=== PATIENT | female | born 1965 | race Caucasian/White ===

== ENCOUNTER 2016-10-22 16:09 | Inpatient (IN) | payer OTHER, MEDICAID, MEDICARE ==
[~2016-10-22] VITALS: Ht 182.9 cm; Wt 119.0 kg
[2016-10-30] MEDS ORDERED: FLUO40CA PO (15:14)
[2016-10-30] MEDS ORDERED: MOBI15TA PO (15:14)
[2016-10-30] MEDS ORDERED: METO25TA3 PO (15:14)
[2016-10-30] MEDS ORDERED: ATOR40TA16 PO (15:14)
[2016-10-30] MEDS ORDERED: FERR140T PO (15:14)
[2016-10-30] MEDS ORDERED: BUPR1TAB29 PO (15:14)
[2016-10-30] MEDS ORDERED: BUTA1CAP5 PO (15:14)
[2016-10-30] MEDS ORDERED: DULE100A INH (15:14)
[2016-10-30] MEDS ORDERED: CYCL1TAB29 PO (15:14)
[2016-10-30] MEDS ORDERED: GABA100C4 PO (15:14)
[2016-10-30] MEDS ORDERED: BENA25TA3 PO (15:14)
[2016-10-30] MEDS ORDERED: TRAZ100T4 PO (15:14)
[2016-10-30] MEDS ORDERED: GLIP10TA6 PO (15:14)
[2016-10-30] MEDS ORDERED: OMEP20TA PO (15:14)
[2016-10-30] MEDS ORDERED: LISI-515 PO (15:14)
[2016-10-30] MEDS ORDERED: MIRA33504 PO (15:14)
[2016-10-30] MEDS ORDERED: BACL10TA PO (15:14)
[2016-10-31] MEDS ORDERED: POVIDONE IODINE 5% (ANTISEPSIS KIT) 4 APPLICATIONS EACH NARE PRN (06:15)
[2016-10-31] MEDS ORDERED: METOPROLOL TARTRATE 25 MG TAB PO PRN (06:15)
[2016-10-31] MEDS ORDERED: INSULIN HUMAN REGULAR 1,000 UNITS/10 ML VIAL SQ PRN (06:15)
[2016-10-31] MEDS ORDERED: ROPIVACAINE PERI-ARTICULAR INJECTION. P-ARTICULR SCH ×5 (06:15)
[2016-10-31] MEDS ORDERED: CHLORHEXIDINE GLUCONATE 2 % 1 PACK (2 CLOTHS) TOPICAL PRN (06:15)
[2016-10-31] MEDS ORDERED: LACTATED RINGER'S 1000 ML IV PRN (06:15)
[2016-10-31] MEDS ORDERED: SODIUM CHLORID 0.9% 500 ML IV PRN (06:15)
[2016-10-31] MEDS ORDERED: VANCOMYCIN 1000 MG/NS 250 ML (for <70 kg) IV SCH ×2 (06:30)
[2016-10-31] MEDS ORDERED: POVIDONE IODINE 7.5% SCRUB 118 ML BOTTLE TOPICAL SCH (06:30)
[2016-10-31] MEDS ORDERED: DEXAMETHASONE SOD PHOS 20 MG/5 ML VIAL IV SCH (06:30)
[2016-10-31] MEDS ORDERED: TRANEXAMIC ACID INJ 1,130 MG in SODIUM CHLORIDE 0.9% INJ 100 ML IV SCH ×2 (06:30→11:30)
[2016-10-31] MEDS ORDERED: ceFAZolin 2 GM PREMIX 50 ML IV SCH (06:30)
[2016-10-31 06:39] VITALS: BP 111/69; PULSE 70; RESP 20; TEMP 98.9; O2SAT 97
--- NOTE | 2016-10-31 06:49 | HHI.DCPOC ---
Discharge Care Plan Diagnosis: (1) Primary localized osteoarthrosis, lower leg (2) Status post total knee replacement, right Your Health Problems Are: Difficulty with ADL Goals to Promote Your Health * To prevent worsening of your condition and complications * To maintain your health at the optimal level Directions to Meet Your Goals Take your medications as prescribed Follow your dietary instruction Follow activity as directed Keep your appointments as scheduled Take your immunizations and boosters as scheduled If your symptoms worsen call your PCP, if no PCP go to Urgent Care Center or Emergency Room Smoking is Dangerous to Your Health. Avoid second hand smoke Call the 24-hour hour crisis hotline for domestic abuse at Ravinder Polk October 31, 2016 06:49
--- NOTE | 2016-10-31 06:50 | HHI.FF ---
Face to Face Verification Diagnosis: (1) Primary localized osteoarthrosis, lower leg (2) Status post total knee replacement, right Physical Therapy Gait training, Transfer training, bed to chair Knee: Total knee Right LE Weight Bearing: WB as tolerated Right LE Range of Motion: Active ROM Nursing Nursing: Terry teaching, Dressing changes Dressing Changes: Daily dressing change I have seen patient Addie Mejias on 10/31/16. My clinical findings support the need for the requested home health care services because: Limited ability to care for self High risk of falls I certify that my clinical findings support that this patient is homebound because: Post-op weakness Unsteady gait/balance Ravinder Polk October 31, 2016 06:50
[2016-10-31] MEDS ORDERED: CPMMACHINE (06:51)
[2016-10-31] MEDS ORDERED: COMMODE 3-IN-11 MIS (06:51)
[2016-10-31] MEDS ORDERED: WALKER WHEELS/F1 MIS (06:51)
[2016-10-31] MEDS ORDERED: GENTAMICIN SULFATE 80 MG/2 ML VIAL ONE (07:01)
[2016-10-31] MEDS ORDERED: ONDANSETRON HCL 4 MG/2 ML VIAL ONE (08:01)
[2016-10-31] MEDS ORDERED: fentaNYL CITRATE 250 MCG/5 ML AMP ONE ×2 (08:01→11:15)
[2016-10-31] MEDS ORDERED: MIDAZOLAM HCL 2 MG/2 ML VIAL ONE (08:01)
[2016-10-31] MEDS ORDERED: ACETAMINOPHEN 1000 MG/100 ML VIAL IV ONE (08:01)
[2016-10-31] MEDS ORDERED: FAMOTIDINE 20 MG/2 ML VIAL ONE (08:01)
[2016-10-31] MEDS ORDERED: GENTAMICIN SULFATE 80 MG/2 ML VIAL IRRIGATION ONE (09:19)
--- NOTE | 2016-10-31 10:39 | PD.OP ---
Operative Report Date of Surgery: October 31, 2016 Preoperative Diagnosis: Right knee severe osteoarthritis Postoperative Diagnosis: Same Procedure: Right total knee arthroplasty Anesthesia: Gen. Surgeon: Reinaldo Forde Carpenter Streetcar(s): BREN Blanchard The surgical procedure was assisted by my Advanced Registered Nurse Practitioner. My NETWORK ASSOCIATE presence was necessary throughout this case for the manipulation and positioning of the surgical extremity. My NETWORK ASSOCIATE was assisting me throughout the duration of this procedure. The skill set of an Advance Registered Nurse Practitioner was medically necessary to complete this procedure. During the surgical case, the surgical training specialist was working at the back table and the Advance Registered Nurse Practitioner was directly assisting me. Operation and Findings: IMPLANTS: DePuy Attune: Patella: size 35. Femur, posterior stabilized size 7. Tibia, rotating platform size 5. Tibial insert, rotating platform, posterior stabilized size 5 mm thickness. ESTIMATED BLOOD LOSS: 150 cc TOURNIQUET TIME: 56 minutes at 250 mmHg pressure. JUSTIFICATION FOR PROCEDURE: The patient has end-stage osteoarthritis to the knee. There is an attached conservative measures pathway form in the chart that describes the nonoperative measures that were undertaken prior to consideration of surgical management. The patient understood the risks and benefits of surgical management. See my office notes for further details PROCEDURE: The patient was brought back to the operative theatre. Adequate anesthesia was obtained. The patient received intravenous vancomycin and Ancef. The lower extremity was prepped and draped in the usual sterile fashion.The leg was exsanguinated, the tourniquet was raised. A standard anterior incision was performed followed by medial parapatellar arthrotomy was performed. End-stage arthritis was identified. Osteotomy of the patella was performed. We drilled holes for the patella. We trialed the patella component. We placed an intramedullary guide into the distal femur. We ultimately resected 14 mm off of the distal femur in 5 degrees of valgus. The remnants of the ACL and PCL were resected. Osteotomy of the proximal tibia was performed, resecting 12 mm off of the medial side. This was done with 3 degrees of posterior slope using an extramedullary guide. The distal end of the guide was placed in the mid aspect of the ankle. The femur was sized, and four chamfer cuts were completed in 3 of external rotation. We then cut the central box in the distal femur to replace the PCL. We resected the remnants of the menisci and removed osteophytes off of the femur and tibia. We then trialed the knee. We punched the tibia for the keel, and then used standard technique to cement in components. Excess cement was removed. We trialed the knee again and the final polyethylene thickness was chosen to provide extension to 0 degrees, and flexion of 140 degrees to gravity. The ligaments were appropriately balanced. Lateral release was necessary to obtain excellent patellofemoral tracking. The tourniquet was released and adequate hemostasis was obtained. An intra- articular injection of a ropivacaine cocktail was injected. The posterior knee was inspected for excess cement, which was removed. The final polyethylene was put into position after thorough irrigation. We then closed deep fascia with a #2 Stratafix followed by skin with 2-0 Vicryl followed by david. Postop plan is to weight-bear as tolerated. DVT prophylaxis will be performed with Kathi, MARI thibodeaux, early mobilization, and Lovenox for 3 weeks followed by aspirin. Reinaldo Forde MD October 31, 2016 10:39
[2016-10-31] MEDS ORDERED: NORC5TAB PO (10:42)
[2016-10-31] MEDS ORDERED: ASPI325T PO (10:42)
[2016-10-31] MEDS ORDERED: ENOX40P SQ (10:42)
[2016-10-31] MEDS ORDERED: ALUMINUM/MAGNESIUM/SIMETH 30 ML CUP PO PRN (10:45)
[2016-10-31] MEDS ORDERED: diphenhydrAMINE HCL 50 MG CAP PO PRN (10:45)
[2016-10-31] MEDS ORDERED: ONDANSETRON HCL 4 MG/2 ML VIAL IVP PRN (10:45)
[2016-10-31] MEDS ORDERED: ACETAMINOPHEN/HYDROcodone 325 MG/5 MG TAB PO PRN (10:45)
[2016-10-31] MEDS ORDERED: MORPHINE SULFATE 4 MG/ML INJ IV PUSH PRN (10:45)
[2016-10-31] MEDS ORDERED: diphenhydrAMINE HCL 50 MG/ML VIAL IV PRN (10:45)
[2016-10-31] MEDS ORDERED: NALOXONE HCL 0.4 MG/ML AMP IV PRN (10:45)
[2016-10-31] MEDS ORDERED: Post-op Orders (for Pharmacy) MISC XX ONE (10:45)
[2016-10-31] MEDS ORDERED: ZOLPIDEM TARTRATE 5 MG TAB PO PRN (10:45)
[2016-10-31] MEDS ORDERED: BISACODYL 10 MG SUPP RECTAL PRN (10:45)
[2016-10-31] MEDS ORDERED: SODIUM CHLORIDE 0.9% FLUSH 5 ML FLUSH IVF PRN (10:45)
[2016-10-31] MEDS ORDERED: *MEPERIDINE 25 MG INJ VIAL PERIprocedural Use ONLY ONE (11:18)
[2016-10-31] MEDS ORDERED: DO NOT ADM ANY ANTICOAGULANT DRUGS PRN ×2 (11:19→12:00)
[2016-10-31] MEDS ORDERED: *morphine SULFATE 8 MG/ML PERIprocedure ONLY ONE ×2 (11:26→11:33)
[2016-10-31] MEDS ORDERED: TRANEXAMIC ACID IV SCH (11:30)
[2016-10-31] MEDS ORDERED: SODIUM CHLORIDE 0.9% IV SCH (11:30)
[2016-10-31] MEDS ORDERED: ONDANSETRON HCL 4 MG/2 ML VIAL IV PUSH ONE (12:00)
[2016-10-31] MEDS ORDERED: PHENYLEPH/NS 1000 MCG/10 ML SYR IV ONE (12:00)
[2016-10-31] MEDS ORDERED: LACTATED RINGER'S 1000 ML INJ 1,000 ML IV ONE (12:00)
[2016-10-31] MEDS: SODIUM CHLOR 0.9% 1000 ML INJ 1,000 ML IV SCH ×2 (12:00→21:08)
[2016-10-31] MEDS ORDERED: PROPOFOL 200 MG/20 ML AMP IV ONE (12:00)
[2016-10-31] MEDS ORDERED: ePHEDrine/NS 25 MG/5 ML SYR IV ONE ×2 (12:00)
[2016-10-31] MEDS ORDERED: NEOSTIGMINE 3 MG/3 ML SYR IV ONE (12:00)
--- NOTE | 2016-10-31 12:22 | RADRPT ---
EXAM DATE/TIME: 10/31/2016 11:41 [place] COMPARISON: No previous studies available for comparison. INDICATIONS : Post right knee surgery. MEDICAL HISTORY : Hypertension. Right lung mass. SURGICAL HISTORY : Tubal ligation. Left femur surgery. Back surgery. ENCOUNTER: Initial ACUITY: 1 day PAIN SCORE: 0/10 LOCATION: Right Knee. FINDINGS: Two view examination of the right knee demonstrates no evidence of fracture or dislocation. Right kne e arthroplasty. Postsurgical changes. CONCLUSION: Right knee arthroplasty. Azael Meyers MD on October 31, 2016 at 12:20 Board Certified Radiologist. This report was verified electronically.
[2016-10-31] MEDS: BACLOFEN 10 MG TAB PO SCH (13:45)
[2016-10-31] MEDS: ACETAMINOPHEN/HYDROcodone 325 MG/5 MG TAB PO PRN ×2 (14:33→21:13)
[2016-10-31 16:00] VITALS: BP 149/90; PULSE 83; RESP 18; TEMP 96.3; O2SAT 95
[2016-10-31 17:12] VITALS: O2SAT 96
[2016-10-31 20:28] VITALS: BP 109/67; PULSE 81; RESP 19; TEMP 96.6; O2SAT 99
[2016-10-31] MEDS ORDERED: MOMETASONE FORMOTEROL INH SCH (21:00)
[2016-10-31] MEDS: SODIUM CHLORIDE 0.9% FLUSH 5 ML FLUSH IVF SCH (21:00)
[2016-10-31] MEDS: buPROPion HCL 150 MG SUSTAINED RELEASE TAB PO SCH (21:08)
[2016-10-31] MEDS: ATORVASTATIN 40 MG TAB PO SCH (21:08)
[2016-10-31] MEDS: CYCLOBENZAPRINE HCL 10 MG TAB PO SCH (21:08)
[2016-10-31] MEDS: GABAPENTIN 100 MG CAP PO SCH (21:09)
[2016-10-31] MEDS: METOPROLOL TARTRATE 25 MG TAB PO SCH (21:09)
[2016-10-31] MEDS: traZODone HCL 100 MG TAB PO SCH (21:09)
[2016-10-31] MEDS: MAGNESIUM HYDROXIDE SUSP 30 ML CUP PO PRN (21:10)
[2016-10-31 23:46] VITALS: BP 106/64; PULSE 73; RESP 18; TEMP 96.8; O2SAT 95
[2016-11-01] MEDS: ACETAMINOPHEN/HYDROcodone 325 MG/5 MG TAB PO PRN ×4 (01:17→17:21)
[2016-11-01 04:33] VITALS: BP 105/65; PULSE 73; RESP 18; TEMP 97.1; O2SAT 97
[2016-11-01 05:02] LABS: HEMATOCRIT 28.4 % (35.0-46.0); MEAN CORPUSCULAR HEMOGLOBIN 27.6 PG (27.0-34.0); PLATELET COUNT 170 TH/MM3 (150-450); RED BLOOD COUNT 3.31 MIL/MM3 (4.00-5.30); RED CELL DISTRIBUTION WIDTH 13.6 % (11.6-17.2); REVIEW FLAG FINAL; WHITE BLOOD COUNT 10.6 TH/MM3 (4.0-11.0)
[2016-11-01] MEDS: SODIUM CHLOR 0.9% 1000 ML INJ 1,000 ML IV SCH ×2 (05:28→16:35)
[2016-11-01] MEDS ORDERED: DEXAMETHASONE SOD PHOS 20 MG/5 ML VIAL IV ONE (07:45)
[2016-11-01 08:00] VITALS: BP 104/63; PULSE 77; RESP 16; TEMP 97.4; O2SAT 98
[2016-11-01] MEDS: POLYETHYLENE GLYCOL 17 GM PKG PO SCH (08:31)
[2016-11-01] MEDS: glipiZIDE 10 MG TAB PO SCH (08:31)
[2016-11-01] MEDS: PANTOPRAZOLE SOD 20 MG DELAYED RELEASE TAB PO SCH (08:31)
[2016-11-01] MEDS: BACLOFEN 10 MG TAB PO SCH ×3 (08:32→17:21)
[2016-11-01] MEDS: LISINOPRIL 20 MG TAB PO SCH (08:32)
[2016-11-01] MEDS: GABAPENTIN 100 MG CAP PO SCH ×2 (08:32→20:38)
[2016-11-01] MEDS: METOPROLOL TARTRATE 25 MG TAB PO SCH ×2 (08:33→23:45)
[2016-11-01] MEDS: buPROPion HCL 150 MG SUSTAINED RELEASE TAB PO SCH ×2 (08:33→20:37)
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
[2016-11-01] MEDS: SODIUM CHLORIDE 0.9% FLUSH 5 ML FLUSH IVF SCH ×2 (09:00→20:38)
[2016-11-01] MEDS: ENOXAPARIN SODIUM 40 MG/0.4 ML SYRINGE SQ SCH (10:26)
[2016-11-01 10:43] VITALS: O2SAT 94
[2016-11-01 12:00] VITALS: BP 98/54; PULSE 87; RESP 16; TEMP 96.8; O2SAT 93
--- NOTE | 2016-11-01 12:07 | PD.ORT.PN ---
Subjective Post Op Day #: 1 Subjective Remarks The patient is OOB in chair with mild to moderate knee pain. Patient is ambulatory. Patient's urinary cath was removed last night but has not voided and does not feel distended. Objective Vitals Vital Signs Date Time Temp Pulse Resp B/P Pulse Ox O2 Delivery O2 Flow Rate FiO2 11/01/16 10:43 94 21 11/01/16 08:00 97.4 77 16 104/63 98 11/01/16 04:33 97.1 73 18 105/65 97 10/31/16 23:46 96.8 73 18 106/64 95 10/31/16 21:15 Nasal Cannula 2.00 10/31/16 20:28 96.6 81 19 109/67 99 10/31/16 19:15 Nasal Cannula 2.00 10/31/16 17:12 96 Nasal Cannula 3.00 10/31/16 16:00 96.3 83 18 149/90 95 10/31/16 15:30 18 10/31/16 12:25 98.2 81 16 150/88 95 Nasal Cannula 2 10/31/16 12:15 80 15 149/86 94 Nasal Cannula 2 10/31/16 12:00 80 15 142/82 94 Nasal Cannula 2 I/O 10/31/16 10/31/16 10/31/16 11/01/16 11/01/16 11/01/16 07:00 15:00 23:00 07:00 15:00 23:00 Intake Total 1300 ml 1607 ml 1384 ml Output Total 900 ml 700 ml 550 ml Balance 400 ml 907 ml 834 ml Intake Oral 720 ml 480 ml IV Total 100 ml 887 ml 904 ml Other 1200 ml Output Urine Total 800 ml 700 ml 550 ml Estimated Blood Loss 100 ml # Bowel Movements 0 0 Result Diagram: 11/01/16 0436 Procedures Right TKA Objective Remarks The patient's dressing is C/D/I. EHL/TA/G intact. 2+ pedal pulse. No calf swelling or tenderness. + SILT. Minimal swelling. Assessment & Plan Ortho Post Op Day #: 1 Problem List: Assessment and Plan POD #1: Right TKA 1. WBAT RLE 2. Lovenox x 3 weeks followed by 1 month of ASA for DVT prophylaxis 3. Ice to the right knee PRN 4. Patient is planning to go to rehab on Saturday. Ravinder Polk November 01, 2016 12:07
[2016-11-01 16:00] VITALS: BP 128/81; PULSE 82; RESP 16; TEMP 98.9; O2SAT 93
[2016-11-01 19:00] VITALS: BP 121/80; PULSE 81; RESP 17; TEMP 96.5; O2SAT 97
[2016-11-01] MEDS: MULTIVITAMINS/MINERALS THERAPEUTIC TAB PO SCH (20:37)
[2016-11-01] MEDS: DOCUSATE SODIUM 100 MG CAP PO SCH (20:37)
[2016-11-01] MEDS: MAGNESIUM HYDROXIDE SUSP 30 ML CUP PO PRN (20:37)
[2016-11-01] MEDS: ATORVASTATIN 40 MG TAB PO SCH (20:37)
[2016-11-01] MEDS: CYCLOBENZAPRINE HCL 10 MG TAB PO SCH (20:38)
[2016-11-01] MEDS ORDERED: PT DULERA INH SCH (21:00)
[2016-11-01] MEDS: traZODone HCL 100 MG TAB PO SCH (23:45)
[2016-11-02] VITALS (8 sets, daily range): BP systolic 105–142; BP diastolic 41–93; PULSE 67–83; RESP 16–20; TEMP 96.9–98.6; O2SAT 94–100
[2016-11-02] MEDS: ACETAMINOPHEN/HYDROcodone 325 MG/5 MG TAB PO PRN ×5 (02:32→21:47)
[2016-11-02] MEDS: SODIUM CHLOR 0.9% 1000 ML INJ 1,000 ML IV SCH ×2 (02:35→12:35)
[2016-11-02 06:29] LABS: HEMATOCRIT 25.9 % (35.0-46.0); MEAN CELL VOLUME 84.9 FL (80.0-100.0); MEAN CORPUSCULAR HEMOGLOBIN 27.7 PG (27.0-34.0); MEAN CORPUSCULAR HGB CONC 32.7 % (32.0-36.0); PLATELET COUNT 158 TH/MM3 (150-450); RED BLOOD COUNT 3.06 MIL/MM3 (4.00-5.30); RED CELL DISTRIBUTION WIDTH 13.8 % (11.6-17.2); REVIEW FLAG FINAL; WHITE BLOOD COUNT 9.1 TH/MM3 (4.0-11.0)
[2016-11-02] MEDS: SODIUM CHLORIDE 0.9% FLUSH 5 ML FLUSH IVF SCH ×2 (09:00→21:00)
[2016-11-02] MEDS: POLYETHYLENE GLYCOL 17 GM PKG PO SCH (09:00)
[2016-11-02] MEDS: MULTIVITAMINS/MINERALS THERAPEUTIC TAB PO SCH ×2 (10:10→21:48)
[2016-11-02] MEDS: BACLOFEN 10 MG TAB PO SCH ×3 (10:10→17:18)
[2016-11-02] MEDS: buPROPion HCL 150 MG SUSTAINED RELEASE TAB PO SCH ×2 (10:10→21:48)
[2016-11-02] MEDS: PANTOPRAZOLE SOD 20 MG DELAYED RELEASE TAB PO SCH (10:10)
[2016-11-02] MEDS: glipiZIDE 10 MG TAB PO SCH (10:10)
[2016-11-02] MEDS: LISINOPRIL 20 MG TAB PO SCH (10:10)
[2016-11-02] MEDS: DOCUSATE SODIUM 100 MG CAP PO SCH ×2 (10:10→21:47)
[2016-11-02] MEDS: METOPROLOL TARTRATE 25 MG TAB PO SCH ×2 (10:11→21:48)
[2016-11-02] MEDS: GABAPENTIN 100 MG CAP PO SCH ×2 (10:11→21:48)
[2016-11-02] MEDS: ENOXAPARIN SODIUM 40 MG/0.4 ML SYRINGE SQ SCH (10:14)
--- NOTE | 2016-11-02 15:03 | HHI.PR ---
Subjective Remarks Patient seen this morning. She reports that pain is controlled. Denies any chest pain or shortness of breath. Says post bowel movement. Objective Vital Signs Date Time Temp Pulse Resp B/P Pulse Ox O2 Delivery O2 Flow Rate FiO2 11/02/16 09:25 94 21 11/02/16 08:00 97.4 77 16 128/80 99 11/02/16 04:00 97.5 78 17 121/76 96 11/02/16 01:10 96.9 83 16 142/93 96 11/01/16 21:02 21 11/01/16 19:00 96.5 81 17 121/80 97 11/01/16 18:56 Room Air 11/01/16 16:00 98.9 82 16 128/81 93 I/O 11/01/16 11/01/16 11/01/16 11/02/16 11/02/16 11/02/16 06:59 14:59 22:59 06:59 14:59 22:59 Intake Total 1384 ml 600 ml 480 ml 480 ml Output Total 550 ml Balance 834 ml 600 ml 480 ml 480 ml Intake Oral 480 ml 600 ml 480 ml 480 ml IV Total 904 ml Output Urine Total 550 ml # Voids 1 3 3 # Bowel Movements 0 0 1 0 Result Diagram: 11/02/16 0522 Objective Remarks GENERAL: Patient sitting up in bed. Appears comfortable. SKIN: Warm and dry. HEAD: Normocephalic. EYES: No scleral icterus. No injection or drainage. NECK: Supple, trachea midline. No JVD CARDIOVASCULAR: Regular rate and rhythm without murmurs, gallops, or rubs. RESPIRATORY: Breath sounds equal bilaterally. No accessory muscle use. GASTROINTESTINAL: Abdomen soft, non-tender, nondistended. MUSCULOSKELETAL: No cyanosis, or edema. Postoperative hip not examined. Peripheral perfusion intact. BACK: Nontender without obvious deformity. No CVA tenderness. A/P Assessment and Plan Ms. Mejias is a pleasant 51-year-old female with a history of hypertension, diabetes mellitus, chronic back pain who underwent right total knee arthroplasty on 10/31/2016. Hospitalist service was consulted for medical management. //Osteoarthritis of right knee - Status post right knee arthroplasty. - Continue [place] and morphine for pain when necessary. Continue baclofen 10 mg 3 times a day. -Status Post return of bowel function. -Continue Lovenox as per primary service. //Suspected CK D stage III -Preoperative creatinine 1.4. Will recheck kidney function. BMP ordered. //Diabetes mellitus //Diabetic neuropathy - continue patient's home medication glipizide 10 mg daily. - Continue gabapentin 200 mg by mouth twice a day -Blood sugars reviewed and acceptable. Continue to monitor //Hypertension -Blood pressure reviewed and stable. Continue lisinopril 20 mg by mouth daily //Hyperlipidemia - continue atorvastatin 40 mg daily at bedtime. DVT prophylaxis. As per surgical service. Discharge Planning As per surgical service. Hubert Hill MD November 02, 2016 15:03
--- NOTE | 2016-11-02 16:28 | PD.ORT.PN ---
Subjective Post Op Day #: 2 Subjective Remarks The patient is resting in bed in NAD. Patient states her pain is moderate. Patient is voiding Objective Vitals Vital Signs Date Time Temp Pulse Resp B/P Pulse Ox O2 Delivery O2 Flow Rate FiO2 11/02/16 12:00 97.8 67 16 105/41 98 11/02/16 09:25 94 21 11/02/16 08:00 97.4 77 16 128/80 99 11/02/16 04:00 97.5 78 17 121/76 96 11/02/16 01:10 96.9 83 16 142/93 96 11/01/16 21:02 21 11/01/16 19:00 96.5 81 17 121/80 97 11/01/16 18:56 Room Air I/O 11/01/16 11/01/16 11/01/16 11/02/16 11/02/16 11/02/16 07:00 15:00 23:00 07:00 15:00 23:00 Intake Total 1384 ml 600 ml 480 ml 480 ml Output Total 550 ml Balance 834 ml 600 ml 480 ml 480 ml Intake Oral 480 ml 600 ml 480 ml 480 ml IV Total 904 ml Output Urine Total 550 ml # Voids 1 3 3 # Bowel Movements 0 0 1 0 Result Diagram: 11/02/16 0522 Procedures Right TKA Objective Remarks The patient's dressing is changed with no drainage. Incision is well approximated with surgical clips intact. No redness or s/s of infection. EHL/ TA/G intact. 2+ pedal pulse. No calf swelling or tenderness. + SILT. Minimal swelling. Assessment & Plan Ortho Post Op Day #: 2 Problem List: Assessment and Plan POD #2 Right TKA 1. WBAT RLE 2. Lovenox x 3 weeks followed by 1 month of ASA for DVT prophylaxis 3. Ice to the right knee PRN 4. Patient is planning to go home with home health on Saturday. Ravinder Polk November 02, 2016 16:28
[2016-11-02 17:51] LABS: BICARBONATE 31.3 MEQ/L (21.0-32.0); POTASSIUM 4.2 MEQ/L (3.5-5.1)
[2016-11-02] MEDS: traZODone HCL 100 MG TAB PO SCH (21:47)
[2016-11-02] MEDS: ATORVASTATIN 40 MG TAB PO SCH (21:48)
[2016-11-02] MEDS: CYCLOBENZAPRINE HCL 10 MG TAB PO SCH (21:48)
[2016-11-03] VITALS: BP 132/85; PULSE 78; RESP 19; TEMP 98.1; O2SAT 95
[2016-11-03] MEDS: ACETAMINOPHEN/HYDROcodone 325 MG/5 MG TAB PO PRN ×3 (03:21→14:29)
[2016-11-03 07:10] LABS: HEMATOCRIT 24.7 % (35.0-46.0); MEAN CELL VOLUME 85.2 FL (80.0-100.0); MEAN CORPUSCULAR HEMOGLOBIN 27.5 PG (27.0-34.0); MEAN CORPUSCULAR HGB CONC 32.2 % (32.0-36.0); PLATELET COUNT 165 TH/MM3 (150-450); RED CELL DISTRIBUTION WIDTH 13.8 % (11.6-17.2); REVIEW FLAG FINAL; WHITE BLOOD COUNT 9.1 TH/MM3 (4.0-11.0)
[2016-11-03 08:00] VITALS: BP 113/74; PULSE 86; RESP 18; TEMP 99.1; O2SAT 93
[2016-11-03] MEDS: SODIUM CHLORIDE 0.9% FLUSH 5 ML FLUSH IVF SCH (09:00)
[2016-11-03] MEDS: ENOXAPARIN SODIUM 40 MG/0.4 ML SYRINGE SQ SCH (10:03)
--- NOTE | 2016-11-03 10:03 | PD.ORT.PN ---
Subjective Post Op Day #: 3 Subjective Remarks The patient is resting in bed in NAD. Patient states her pain is moderate. Patient states she is ready for discharge home with home health today Objective Vitals Vital Signs Date Time Temp Pulse Resp B/P Pulse Ox O2 Delivery O2 Flow Rate FiO2 11/03/16 08:00 99.1 86 18 113/74 93 11/03/16 00:00 98.1 78 19 132/85 95 11/02/16 21:14 21 11/02/16 20:00 98.1 78 20 123/78 95 11/02/16 16:00 98.0 82 16 109/70 96 11/02/16 12:00 97.8 67 16 105/41 98 I/O 11/02/16 11/02/16 11/02/16 11/03/16 11/03/16 11/03/16 07:00 15:00 23:00 07:00 15:00 23:00 Intake Total 480 ml 600 ml 780 ml 120 ml Balance 480 ml 600 ml 780 ml 120 ml Intake Oral 480 ml 600 ml 780 ml 120 ml # Voids 3 3 3 1 # Bowel Movements 0 0 0 0 Result Diagram: 11/03/16 0629 11/02/16 1656 Procedures Right TKA Objective Remarks The patient's dressing is changed with no drainage. Incision is well approximated with surgical clips intact. No redness or s/s of infection. EHL/ TA/G intact. 2+ pedal pulse. No calf swelling or tenderness. + SILT. Minimal swelling. Assessment & Plan Ortho Post Op Day #: 3 Problem List: Assessment and Plan POD #3 Right TKA 1. WBAT RLE 2. Lovenox x 3 weeks followed by 1 month of ASA for DVT prophylaxis 3. Ice to the right knee PRN 4. Patient stable for discharge home with home health today. Ravinder Polk November 03, 2016 10:03
[2016-11-03] MEDS: buPROPion HCL 150 MG SUSTAINED RELEASE TAB PO SCH (10:04)
[2016-11-03] MEDS: DOCUSATE SODIUM 100 MG CAP PO SCH (10:04)
[2016-11-03] MEDS: METOPROLOL TARTRATE 25 MG TAB PO SCH (10:04)
[2016-11-03] MEDS: BACLOFEN 10 MG TAB PO SCH ×2 (10:04→14:29)
[2016-11-03] MEDS: PANTOPRAZOLE SOD 20 MG DELAYED RELEASE TAB PO SCH (10:04)
[2016-11-03] MEDS: glipiZIDE 10 MG TAB PO SCH (10:04)
[2016-11-03] MEDS: GABAPENTIN 100 MG CAP PO SCH (10:04)
[2016-11-03] MEDS: LISINOPRIL 20 MG TAB PO SCH (10:04)
[2016-11-03] MEDS: MULTIVITAMINS/MINERALS THERAPEUTIC TAB PO SCH (10:04)
[2016-11-03 12:00] VITALS: BP 116/82; PULSE 84; RESP 20; TEMP 97.9; O2SAT 100
[2016-11-03] MEDS: POLYETHYLENE GLYCOL 17 GM PKG PO SCH (14:29)
--- NOTE | 2016-11-05 21:39 | HHI.DS ---
Discharge Summary Admission Date October 31, 2016 at 05:33 Discharge Date: November 03, 2016 Admitting Diagnosis Primary localized OA, lower leg Status post total hip replacement, right Diagnosis: (1) Primary localized osteoarthrosis, lower leg Diagnosis: Principal (2) Status post total knee replacement, right Diagnosis: Principal Procedures Right TKA Brief History This is a 51 year old female patient with severe OA of the right knee CBC/BMP: 11/03/16 0629 11/02/16 1656 Significant Findings Laboratory Tests Test 11/03/16 06:29 Red Blood Count 2.90 MIL/MM3 (4.00-5.30) Hemoglobin 8.0 GM/DL (11.6-15.3) Hematocrit 24.7 % (35.0-46.0) PE at Discharge The patient's dressing is changed with no drainage. Incision is well approximated with surgical clips intact. No redness or s/s of infection. EHL/ TA/G intact. 2+ pedal pulse. No calf swelling or tenderness. + SILT. Minimal swelling. Hospital Course The patient was admitted to the hospital with severe right knee OA to have a right TKA. The patient's surgery went well without complications. The patient is WBAT. The patient was placed on a diabetic diet post op. The patient was placed on Lovenox for DVT prophylaxis. The patient was discharged home with home health and will f/u with Dr. Forde in 1-2 weeks. Pt Condition on Discharge: Stable Discharge Disposition: Disch w/ Home Health Serv Discharge Instructions Diet Instructions: Diabetic Diet Activities You Can Perform: Weight Bearing as [place] Activities to Avoid: Strenuous Activity Follow up Referrals: Orthopedics with Reinaldo Forde MD [facility]/ with [facility] New Medications: Aspirin (Aspirin) 325 Mg Tab 325 MG PO ONCE Start Aspirin after Lovenox is completed. Prevent Blood Clot #30 Ref 0 TAB Commode 3-in-1 (Commode 3-in-1) 1 Mis Mis 1 EA .ROUTE DIRECTED #1 Ref 0 EA CPM-Continuous Passive Motion Machine (CPM-Continuous Passive Motion Machine) 1 Ea Device 1 EA .ROUTE DIRECTED #1 Ref 0 EA Enoxaparin Inj (Lovenox Inj) 40 Mg/0.4 Ml Syr 40 MG SQ DAILY Start Aspirin after Lovenox is completed. Blood Clot Prevention # 20 Ref 0 SYRINGE Hydrocodone-Acetaminophen ([place]) 5-325 mg Tab 1-2 TAB PO Q4H PRN PAIN #60 Ref 0 TAB Walker with Front Wheels (Walker with Front Wheels) 1 Mis Mis 1 EA .ROUTE DIRECTED #1 Ref 0 EA Continued Medications: Atorvastatin (Atorvastatin) 40 Mg Tab 40 MG PO HS Cholesterol Management #30 Ref 0 TAB Baclofen (Baclofen) 10 Mg Tab 10 MG PO TID Muscle Spasm Ref 0 TAB Bupropion HCl ER 12 HR (Bupropion HCl ER 12 HR) 150 Mg Tab 150 MG PO BID Ref 0 TAB Jjdneimeme-Jguvlksvtqlhq-Tqqggblf (Aymuddatuf-Pguzhouphazqe-Piigfldv) 50-300-40 Mg Cap 2 CAP PO Q4H Do not exceed 6 capsules/day. PRN HEADACHE Ref 0 CAP Cyclobenzaprine (Flexeril) 10 Mg Tab 10 MG PO HS Muscle Spasm #90 Ref 0 TAB Diphenhydramine (Benadryl Allergy) 25 Mg Tab 50 MG PO BID PRN ALLERGIES Ref 0 TAB Ferrous Sulfate ER (Ferrous Sulfate ER) 140 Mg Tab 325 MG PO TID Nutritional Supplement #30 Ref 0 TAB Fluoxetine (Fluoxetine) 40 Mg Cap 40 CAP PO DAILY #30 Ref 0 CAP Gabapentin (Gabapentin) 100 Mg Cap 200 MG PO BID #60 Ref 0 CAP Glipizide (Glipizide) 10 Mg Tab 10 MG PO DAILY Take 30 minutes before a meal Blood Sugar Management #30 Ref 0 TAB Lisinopril (Lisinopril) 20 Mg Tab 20 MG PO DAILY #30 Ref 0 TAB Metoprolol Tartrate (Metoprolol Tartrate) 25 Mg Tab 25 MG PO BID #60 Ref 0 TAB Mometasone-Formoterol 120 Act Inh (Dulera 120 Act Inh) 100-5 Mcg/Act Inh 1 PUFF INH BID Asthma Management #1 Ref 0 INHALER Omeprazole (Omeprazole) 20 Mg Tab 20 MG PO DAILY #30 Ref 0 TAB Polyethylene Glycol 3350 Powder (Miralax Powder) 17 Gm Powd 17 GM PO DAILY Mix and dissolve one measuring cap-ful (17 grams) in water or juice. Constipation #1 Ref 0 BOTTLE Trazodone (Trazodone) 100 Mg Tab 100 MG PO HS Control Depression #30 Ref 0 TAB Discontinued Medications: Meloxicam (Mobic) 15 Mg Tab 15 MG PO DAILY Arthritis pain Ref 0 TAB Ravinder Polk November 05, 2016 21:39
== END 2016-11-03 15:24 | disposition home health service (06) | DRG 470 ==
LOC: HSDI 10-31 05:33 → N06A 10-31 12:51
PROVIDERS: ADMIT Orthopaedic Surgery; ATTEND Orthopaedic Surgery
PROC: 3E0T3BZ Introduction of Anesthetic Agent into Peripheral Nerves and Plexi, Percutaneous Approach (ICD-10-PCS; 2016-10-31)
PROC: 0SRC0J9 Replacement of Right Knee Joint with Synthetic Substitute, Cemented, Open Approach (ICD-10-PCS; principal; 2016-10-31 08:11)
DX: M17.11 Unilateral primary osteoarthritis, right knee (principal); E11.40 Type 2 diabetes mellitus with diabetic neuropathy, unspecified; I10 Essential (primary) hypertension; E78.5 Hyperlipidemia, unspecified; M54.9 Dorsalgia, unspecified; G89.29 Other chronic pain; Z79.84 Long term (current) use of oral hypoglycemic drugs; K21.9 Gastro-esophageal reflux disease without esophagitis; Z86.718 Personal history of other venous thrombosis and embolism; E66.9 Obesity, unspecified; Z68.35 Body mass index [BMI] 35.0-35.9, adult; F32.9 Major depressive disorder, single episode, unspecified; F41.9 Anxiety disorder, unspecified
CPT/HCPCS: 73560; 80048; 82948; 85027; 86850; 86900; 86901; 94150; C1776; J0131; J0171; J0690; J0735; J1100; J1580; J1650; J1885; J2175; J2250; J2270; J2370; J2405; J2710; J2795; J3010; J3370; J7030; J7050; J7120; L1830

== ENCOUNTER 2017-03-27 12:14 | Emergency (ER) | payer MEDICARE, MEDICAID ==
[~2017-03-27] VITALS: Ht 182.9 cm; Wt 100.0 kg
[~2017-03-27 12:14] MED LIST: ASPI325T PO; ATOR40TA16 PO; BACL10TA PO; BENA25TA3 PO; BUPR1TAB29 PO; BUTA1CAP5 PO; COMMODE 3-IN-11 MIS; CPMMACHINE; CYCL1TAB29 PO; DULE100A INH; ENOX40P SQ; FERR140T PO; FLUO40CA PO; GABA100C4 PO; GLIP10TA6 PO; LISI-515 PO; METO25TA3 PO; MIRA33504 PO; NORC5TAB PO; OMEP20TA PO; TRAZ100T4 PO; WALKER WHEELS/F1 MIS
[2017-03-27 12:15] VITALS: BP 148/77; PULSE 73; RESP 16; TEMP 99.4; O2SAT 98
[2017-03-27] MEDS ORDERED: FURO1TAB62 PO (12:40)
[2017-03-27] MEDS ORDERED: BUPR75TA PO (12:40)
[2017-03-27] MEDS ORDERED: MIRA3350 PO (12:40)
[2017-03-27] MEDS ORDERED: MELO-1 PO (12:40)
[2017-03-27] MEDS ORDERED: POTA-163 PO (12:40)
[2017-03-27] MEDS ORDERED: DIPH25CA PO (12:40)
[2017-03-27] MEDS ORDERED: [UNRECOGNIZED DRUG - OTHER] PO (12:40)
--- NOTE | 2017-03-27 12:58 | PD ---
HPI Chief Complaint: Pain: Acute or Chronic Time Seen by Provider: 12:49 Travel History International Travel<30 days: No Contact w/Intl Traveler<30days: No Traveled to known affect area: No History of Present Illness HPI 51-year-old female presents to the emergency Department with complaint of continued right lower back pain with radiation down the back of her right leg 2 weeks after a fall. Has history of chronic low back pain and low back surgeries. She was evaluated at [facility] in [facility] and says an MRI and CT scan were done at that time. The patient was given a walker for support which she is using today. She was given Lortab and Flexeril which she has been using for symptom management. She was told to follow-up with primary care provider but she doesn't have one. She returns today because of continued pain. She denies encopresis, incontinence, saddle anesthesias. Denies fevers, vomiting, abdominal pain. Denies change in urine or stool. Denies IV drug use or cancer. Denies paresthesias, loss of sensation, decreased range of motion, decreased strength to bilateral lower extremities. She is able to ambulate without the walker. Symptoms are moderate in severity. Pain is aggravated with walking, palpation, movement. Has no other medical complaints. No known allergies. No other modifying factors or associated signs and symptoms. History Past Medical Histgory Menopausal: Yes Hx Cancer: Yes (MASS ON LUNG UNKNOWN) Social History Alcohol Use: No Tobacco Use: No Allergies-Medications (Allergen,Severity, Reaction): Coded Allergies: No Known Allergies (Unverified , 03/27/17) Reported Meds & Prescriptions Reported Meds & Active Scripts Active Aspirin 325 Mg Tab 325 Mg PO ONCE Start Aspirin after Lovenox is completed. Lovenox Inj (Enoxaparin Sodium) 40 Mg/0.4 Ml Syr 40 Mg SQ DAILY Start Aspirin after Lovenox is completed. [place] (Hydrocodone-Acetaminophen) 5-325 mg Tab 1-2 Tab PO Q4H PRN Walker with Front Wheels (Device) 1 Mis Mis 1 Ea .ROUTE DIRECTED CPM-Continuous Passive Motion Machine 1 Ea Device 1 Ea .ROUTE DIRECTED Commode 3-in-1 (Device) 1 Mis Mis 1 Ea .ROUTE DIRECTED Reported Bupropion HCl 75 Mg Tab 150 Mg PO BID Miralax Powder (Polyethylene Glycol 3350 Powder) 17 Gm Powd 17 Gm PO DAILY Mix and dissolve one measuring cap-ful (17 grams) in water or juice. [Citracet] 12 Tab PO DAILY Diphenhydramine (Diphenhydramine HCl) 25 Mg Cap 50 Mg PO Q12H PRN Meloxicam 15 Mg Tab 15 Mg PO DAILY Lasix (Furosemide) 20 Mg Tab 20 Mg PO BID Potassium Chloride ER (Potassium Chloride) 20 Meq Tab 20 Meq PO BID Omeprazole 20 Mg Tab 20 Mg PO DAILY Dulera 120 Act Inh (Mometasone-Formoterol 120 Act Inh) 100-5 Mcg/Act Inh 1 Puff INH BID Metoprolol Tartrate 25 Mg Tab 25 Mg PO BID Lisinopril 20 Mg Tab 20 Mg PO DAILY Glipizide 10 Mg Tab 10 Mg PO DAILY Take 30 minutes before a meal Gabapentin 100 Mg Cap 200 Mg PO BID Fluoxetine (Fluoxetine HCl) 40 Mg Cap 40 Cap PO DAILY Ferrous Sulfate ER (Ferrous Sulfate) 140 Mg Tab 325 Mg PO TID Flexeril (Cyclobenzaprine HCl) 10 Mg Tab 10 Mg PO HS Tlretrrapm-Ymilvlaaiaivg-Sssmsuim 50-300-40 Mg Cap 2 Cap PO Q4H PRN Do not exceed 6 capsules/day. Baclofen 10 Mg Tab 10 Mg PO TID Atorvastatin (Atorvastatin Calcium) 40 Mg Tab 40 Mg PO HS Review of Systems Except as stated in HPI: all other systems reviewed are Neg Physical Exam Narrative GENERAL: Well-nourished, well-developed black female patient, in no acute distress; afebrile, nontoxic-appearing SKIN: Warm and dry. Surgical scars noted to midline lumbar spine. HEAD: Atraumatic. Normocephalic. EYES: Pupils equal and round. No scleral icterus. No injection or drainage. ENT: Mucosa pink and moist. Airway patent. NECK: Trachea midline. CARDIOVASCULAR: Regular rate. RESPIRATORY: No accessory muscle use. GASTROINTESTINAL: Round. MUSCULOSKELETAL: Bilateral lower extremities supple and non-tense with 2+ pedal pulses and sensory intact; with full range of motion and 5/5 strength. 2 + DTRs bilaterally. Active dorsiflexion and extension of bilateral feet. Right straight leg raise is positive for low back pain. Ambulatory in room with limp to the right lower extremity. Sitting up in bed at 90. No obvious deformities. No clubbing. No cyanosis. No edema. BACK: No midline point tenderness on palpation of the lumbar spine. Tenderness on palpation of right lumbar iliosacral area. No obvious deformities. NEUROLOGICAL: Awake and alert. Oriented 3. No obvious cranial nerve deficits. Motor grossly within normal limits. Normal speech. Moves all extremities. 5/5 strength to all extremities. Sensory intact. PSYCHIATRIC: Appropriate mood and affect; insight and judgment normal. Data Data Last Documented VS Vital Signs Date Time Temp Pulse Resp B/P (MAP) Pulse Ox O2 Delivery O2 Flow Rate FiO2 03/27/17 12:15 99.4 73 16 148/77 (100) 98 Room Air MDM Medical Screen Exam Complete: Yes Emergency Medical Condition: No Differential Diagnosis Lumbar radiculopathy, sciatica, medical clearance Narrative Course This is a 51-year-old female who was evaluated for low back pain at [facility] 2 weeks ago after a fall. Patient has history of chronic low back pain and low back surgeries. Per the patient she had an MRI and a CT scan done and was told to follow up outpatient with her primary care provider. She returns today because of continued pain. Her pain radiates on the back of her right leg. She does have a walker for support. The patient is able to ambulate in the room without the walker. Denies encopresis, incontinence, saddle anesthesias. Denies IV drug use or cancer. Patient is afebrile and nontoxic-appearing. She denies fever, vomiting. Patient was provided community information to follow up outpatient with primary care. I do not feel that further imaging is necessary at this time and the patient can follow up outpatient. Patient has prescriptions for Lortab and Flexeril at home. Vital signs are stable and the patient is stable for outpatient follow-up and treatment. The pateint has no urgent or emergent medical complaints. There is no emergent or urgent medical need at this time. I instructed the patient to follow up with [facility] primary care provider. A medical screening exam was performed: At the time of evaluation the presenting medical condition was determined not to be of an emergent nature. The patient was given the option of receiving additional care, but declined. Patient was given options for additional community resources from which to obtain care. The Patient Has Been advised to seek medical attention for their presenting complaint. The patient has been advised to return to the ER at any time if an emergent condition develops. Primary Impression: Encounter for medical screening examination Condition: Stable Coral Rivera [facility] ATT[employer] Mar 27, 2017 12:58
== END 2017-03-27 13:11 | disposition left against medical advice (07) ==
LOC: NEPK 12:14
DX: M54.5 Low back pain (principal)
CPT/HCPCS: 99281